=== PATIENT | female | born 1995 | race African-American/Black ===

== ENCOUNTER 2020-11-07 22:46 | Emergency (ER) | payer BC, MEDICAID ==
[~2020-11-07] VITALS: Ht 160 cm; Wt 80.0 kg
[2020-11-08] MEDS ORDERED: KETOROLAC 30MG/ML VIAL IM ONE
[2020-11-08 00:37] VITALS: BP 142/86
== END 2020-11-08 00:37 | disposition home or self-care (01) ==
LOC: ER 22:46
DX: M25.551 Pain in right hip (principal); V43.52XA Car driver injured in collision with other type car in traffic accident, initial encounter; Y93.89 Activity, other specified; Y92.89 Other specified places as the place of occurrence of the external cause; Y99.8 Other external cause status
CPT/HCPCS: 73502; 81025; 96372; 99283; J1885